=== PATIENT | female | born 1985 | race Caucasian/White ===

== ENCOUNTER 2021-02-18 09:36 | Emergency (ER) | payer OTHER ==
[2021-02-18 09:59] VITALS: BP 121/85; PULSE 88; TEMP 98.5; BMI 22.4
== END 2021-02-18 10:26 | disposition home or self-care (01) ==
LOC: JERFT 09:36
DX: H60.549 Acute eczematoid otitis externa, unspecified ear (principal); H65.91 Unspecified nonsuppurative otitis media, right ear; H60.501 Unspecified acute noninfective otitis externa, right ear
CPT/HCPCS: 99283-25

== ENCOUNTER 2022-07-05 06:30 | Emergency (ER) | payer OTHER ==
[2022-07-05 06:40] VITALS: BP 130/88; PULSE 84; RESP 18; TEMP 98.2; BMI 21.0
== END 2022-07-05 09:10 | disposition home or self-care (01) ==
LOC: JERFT 06:30 → JER 06:30 → JERFT 09:10
DX: B34.9 Viral infection, unspecified (principal)
CPT/HCPCS: 0241U-QW; 99283-25

== ENCOUNTER 2023-04-06 04:47 | Day surgery (SDC) | payer OTHER ==
[2023-04-04 15:49] VITALS: BMI 20.2
[2023-04-06] MEDS ORDERED: LIDOCAINE HCL/PF 1% SDV 5ML VIAL ONE (07:34)
[2023-04-06] MEDS ORDERED: DEXAMETHASONE SOD PHOSPHATE 10 MG/1 ML VIAL ONE (07:34)
[2023-04-06 13:16] VITALS: RESP 20
[2023-04-06] MEDS ORDERED: LIDOCAINE HCL 1%, 10 MG/ML (20ML VIAL) NR ONE (13:56)
[2023-04-06] MEDS ORDERED: DEXAMETHASONE SOD PHOSPHATE 10 MG/1 ML VIAL IM ONE (13:56)
[2023-04-06] MEDS ORDERED: IOHEXOL 180 MG/1 ML ML IJ ONE (13:56)
[2023-04-06 14:19] VITALS: BP 143/90; PULSE 85; TEMP 98.2
== END 2023-04-06 14:40 | disposition home or self-care (01) ==
LOC: JASU-SURG 04:47
PROVIDERS: ATTEND Pain Medicine Pain Medicine
PROC: 3E0R33Z Introduction of Anti-inflammatory into Spinal Canal, Percutaneous Approach (ICD-10-PCS; principal; 2023-04-06 14:45)
DX: M54.12 Radiculopathy, cervical region (principal)
CPT/HCPCS: 76000-TC-FY; 81025; J1100

== ENCOUNTER 2023-05-11 04:03 | Day surgery (SDC) | payer OTHER ==
[2023-05-02 15:26] VITALS: BMI 20.2
[2023-05-11 07:05] VITALS: RESP 20
[2023-05-11] MEDS ORDERED: DEXAMETHASONE SOD PHOSPHATE 10 MG/1 ML VIAL ONE (07:14)
[2023-05-11] MEDS ORDERED: LIDOCAINE HCL/PF 1% SDV 5ML VIAL ONE (07:15)
[2023-05-11] MEDS ORDERED: DEXAMETHASONE SOD PHOSPHATE 10 MG/1 ML VIAL IVPUSH ONE ×3 (07:59→09:19)
[2023-05-11] MEDS ORDERED: IOHEXOL 180 MG/1 ML ML IJ ONE ×3 (08:00→09:19)
[2023-05-11] MEDS ORDERED: LIDOCAINE 1% P/F 10 MG/ML VIAL INF ONE ×2 (08:01→09:19)
[2023-05-11 09:51] VITALS: BP 123/78; PULSE 86; TEMP 97.3
[2023-05-11] MEDS ORDERED: ACETAMINOPHEN 500 MG TABLET (FP) PO PRN (11:10)
== END 2023-05-11 09:41 | disposition home or self-care (01) ==
LOC: JASU-SURG 04:03
PROVIDERS: ATTEND Pain Medicine Pain Medicine
PROC: 3E0R3BZ Introduction of Anesthetic Agent into Spinal Canal, Percutaneous Approach (ICD-10-PCS; 2023-05-11)
PROC: 3E0R33Z Introduction of Anti-inflammatory into Spinal Canal, Percutaneous Approach (ICD-10-PCS; principal; 2023-05-11 08:45)
DX: M54.12 Radiculopathy, cervical region (principal)
CPT/HCPCS: 76000-TC-FY; 81025; J1100